=== PATIENT | female | born 1960 | race Caucasian/White ===

== ENCOUNTER → 2023-08-06 16:57 | Outpatient (REF) | payer BC, SELFPAY | LOC: RAD 16:57 | PROVIDERS: ATTENDING PHYSICIAN Urology; FAMILY PHYSICIAN Family Medicine | DX: N39.0 Urinary tract infection, site not specified (principal); M62.89 Other specified disorders of muscle; N39.3 Stress incontinence (female) (male) | CPT/HCPCS: 76770; 76856 ==

== ENCOUNTER → 2024-07-06 13:55 | Outpatient (REF) | payer BC, SELFPAY | LOC: HWRAD 13:55 | PROVIDERS: ATTENDING PHYSICIAN Podiatrist Foot & Ankle Surgery; FAMILY PHYSICIAN Family Medicine | DX: M19.071 Primary osteoarthritis, right ankle and foot (principal); M19.072 Primary osteoarthritis, left ankle and foot | CPT/HCPCS: 73630 ==

== ENCOUNTER → 2025-01-25 08:49 | Outpatient (REF) | payer BC, SELFPAY | LOC: DHSLP 08:49 | PROVIDERS: ATTENDING PHYSICIAN Internal Medicine; FAMILY PHYSICIAN Nurse Practitioner Family | DX: G47.33 Obstructive sleep apnea (adult) (pediatric) (principal) | CPT/HCPCS: 95800 ==